=== PATIENT | female | born 1995 | race Caucasian/White ===

== ENCOUNTER 2019-04-17 16:44 | Emergency (ER) | payer OTHER ==
[2019-04-17 16:50] VITALS: BP 135/74; PULSE 100; TEMP 98.7; BMI 23.3
--- NOTE | 2019-04-17 17:24 | PDOC ---
History of Present Illness - General Chief Complaint: Pain Stated Complaint: SICK Time Seen by Provider: 04/17/19 16:52 History Source: Patient Exam Limitations: No Limitations Past History - Past Medical History Allergies/Adverse Reactions: Allergies Allergy/AdvReac Type Severity Reaction Status Date / Time No Known Allergies Allergy Verified 04/17/19 16:50 Home Medications: Ambulatory Orders NK [No Known Home Medication] 04/17/19 COPD: No - Suicide/Smoking/Psychosocial Hx Smoking History: Never smoked Information on smoking cessation initiated: No Hx Alcohol Use: No Drug/Substance Use Hx: No *Physical Exam - Vital Signs Last Vital Signs Temp Pulse Resp BP Pulse Ox 98.7 F 100 H 17 135/74 100 04/17/19 16:48 04/17/19 16:48 04/17/19 16:48 04/17/19 16:48 04/17/19 16:48 - Physical Exam General Appearance: No: Apparent Distress Female Pelvic Exam: positive: other (+L bartholin abscess with Tino ring in place, small amount of pus drainage from site, ring is in place, no streaking from site) Gastrointestinal/Abdominal: positive: Normal Bowel Sounds, Soft. negative: Tender, Distended, Guarding, Rebound Neurologic: positive: Alert, Normal Mood/Affect Medical Decision Making - Medical Decision Making 23 y/o F with no sig pmh presents s/p I&D of bartholin abscess on 04/14 at [facility] with pain along site of abscess. States pain is worse with walking; is concerned the "tubing" placed in site fell out or is out of place. Was discharged on Bactrim, which she is almost done with (today is last day). Denies fever, streaking. Tino ring still in place Patient reassured Advised Sitz baths Stable for dc 04/17/19 17:19 *DC/Admit/Observation/Transfer Diagnosis at time of Disposition: Bartholin's gland abscess - Discharge Dispostion Disposition: HOME Condition at time of disposition: Stable Decision to Admit order: No - Referrals Referrals: Katerina Schrader [Primary Care Provider] - Song Altman MD [Staff Physician] - 2 Days - Patient Instructions Printed Discharge Instructions: DI for Bartholin Gland Cyst Additional Instructions: Thank you for choosing [facility]. It was a pleasure taking care of you. You may take Motrin 600 mg every 6 hours by mouth as needed for mild to moderate pain. Take Motrin with food. Recommend warm compresses along site Can also do Sitz baths along site 3 times a day; each session at least 10-15 minutes long for pain You can give yourself a sitz bath in your bathtub or with a plastic kit that fits over your toilet. The ring will stay in place for 4-6 weeks You were referred to cafe worker for further evaluation Return to the Emergency Department if your symptoms worsen or persist, you have fever, streaking from wound or other concerning symptoms. - Post Discharge Activity
== END 2019-04-17 17:25 | disposition home or self-care (01) ==
LOC: JERFT 16:44
DX: N75.0 Cyst of Bartholin's gland (principal)
CPT/HCPCS: 99281-25

== ENCOUNTER 2019-04-19 17:29 | Emergency (ER) | payer OTHER ==
--- NOTE | 2019-04-19 17:37 | PDOC ---
Rapid Medical Evaluation Time Seen by Provider: 04/19/19 17:36 Medical Evaluation: Allergies Allergy/AdvReac Type Severity Reaction Status Date / Time No Known Allergies Allergy Verified 04/17/19 16:50 04/19/19 17:36 HPI: c/o labial cyst, s/p I&D now draining, thinks cyst may have come back PE: deferred ORDERS: nothing Discharge Disposition - Diagnosis Bartholin's gland abscess - Referrals - Patient Instructions - Post Discharge Activity
[2019-04-19 17:39] VITALS: BP 133/69; PULSE 88; TEMP 98.6; BMI 23.3
[2019-04-19] MEDS ORDERED: SULFAMETHOXAZOLE/TRIMETHOPRIM 800MG/160MG D.S. TABLET PO ONE (18:52)
--- NOTE | 2019-04-19 18:52 | PDOC ---
History of Present Illness - General Chief Complaint: Vaginal Sxs Stated Complaint: VAGINAL CYST Time Seen by Provider: 04/19/19 17:36 History Source: Patient Exam Limitations: No Limitations - History of Present Illness Travel History: No Initial Comments: 04/19/19 18:45 Patient is here for reevaluation of Bartholin's cyst. States had abscess drained with a ring April 14. States had been draining a moderate amount of cereal purulent drainage. Has completed her course of Bactrim for 7 days, and performing sitz baths 3 times a day. Was concerned a few days ago when she felt had a recurrence or worsening of the abscess. Was seen here on April 17, no further treatment was performed and known new noted complication. Patient came here insisting that the swelling was worsened and the pain recurrent. Timing/Duration: reports: getting worse Quality: reports: moderate, severe Abdominal Pain Onset Location: reports: other (Left labia) Past History - Travel Traveled outside of the country in the last 30 days: No Close contact w/someone who was outside of country & ill: No - Past Medical History Allergies/Adverse Reactions: Allergies Allergy/AdvReac Type Severity Reaction Status Date / Time No Known Allergies Allergy Verified 04/19/19 17:36 Home Medications: Ambulatory Orders Sulfamethoxazole/Trimethoprim [Bactrim *Ds*] 1 each PO BID #14 tablet 04/19/19 COPD: No - Reproductive History Is Patient Now?: No Dysfunctional Uterine Bleeding: No Ectopic : No Therapeutic (s) & number: No - Suicide/Smoking/Psychosocial Hx Smoking History: Never smoked Hx Alcohol Use: No Drug/Substance Use Hx: No Review of Systems - Review of Systems Able to Perform ROS?: Yes Is the patient limited Bhutanese proficient: Yes Constitutional: Yes: Symptoms Reported, See HPI, Malaise. No: Fever HEENTM: No: Symptoms Reported Respiratory: No: Symptoms reported : Yes: Symptoms Reported, Burning, Pain, Lesions Integumentary: Yes: Symptoms Reported All Other Systems: Reviewed and Negative *Physical Exam - Vital Signs Last Vital Signs Temp Pulse Resp BP Pulse Ox 98.6 F 88 16 133/69 99 04/19/19 17:37 04/19/19 17:37 04/19/19 17:37 04/19/19 17:37 04/19/19 17:37 - Physical Exam General Appearance: Yes: Nourished, Appropriately Dressed HEENT: positive: OSCAR, Normal ENT Inspection, TMs Normal, Pharynx Normal Neck: negative: Tender Female Pelvic Exam: positive: discharge, Bartholin mass (hard plastic catheter/ ring catheter intact to inferior aspect of Bartholin's abscess without fluctuance or noted erythema. Has fluctuant exquisitely tender mass superior to inferior mass that is approximately 3 cm x 2 cm.), other. negative: normal external exam Gastrointestinal/Abdominal: positive: Soft Musculoskeletal: positive: Normal Inspection Extremity: positive: Normal Inspection Integumentary: positive: Dry, Warm Neurologic: positive: clothing consultant II-XII NML intact, Fully Oriented, Alert, Normal Mood/ Affect, Normal Response Procedures - Incision and Drainage I&D Site: Left: Bartholin (large fluctuant exquisitely tender mass superior to site of previous Bartholin's incision and drainage. Ring catheter intact however has obvious recollection of purulent fluid and infection superior to previous site.) Betadine cleansed: Yes Anesthesia: 1% Lidocaine Blade Size: 11 Iodinated Packin/4 in Plain Packing: Yes Complications: none Dressing: Yes Progress Note - Progress Note Progress Note: Recurrent versus new abscess proximal to previous abscess/Bartholin's cyst. Onset approximately 50 mL of purulent drainage with clots. Quarter inch packing placed in new site. Patient tolerated procedure well. Given first dose of Bactrim DS, and 2 tablets of Percocet for pain relief *DC/Admit/Observation/Transfer Diagnosis at time of Disposition: Bartholin's gland abscess - Discharge Dispostion Disposition: HOME Condition at time of disposition: Stable Decision to Admit order: No - Referrals - Patient Instructions Printed Discharge Instructions: DI for Bartholin Gland Cyst Additional Instructions: Rest, keep area elevated. Avoid strenuous activity or exercise until wound is healed Use hot soaks to area to bring more blood to the surface and encourage drainage May change dressings as needed to keep clean - trying to avoid removal of packing for 2 days. If packing needs to be changed, return to emergency department or with your followup physician for wound care and evaluation and repacking as needed If packing needs to be removed, then in 2 days, while in the shower remove dressing and quickly pull the packing taken out. Allow water from shower to wash area thoroughly for 2-3 minutes, and pat dry upon exit of shower and replace dressing. Change his dressing daily until the wound is completely healed. May use Tylenol or Motrin for mild pain relief Use stronger medications as directed and prescribed Continue all medications as prescribed Followup with private physician in 2-3 days for wound check Return to emergency Department for worsening swelling, pain, redness, fevers as needed - Post Discharge Activity Forms/Work/School Notes: Back to Work
[2019-04-19] MEDS ORDERED: SULFAMETHOXAZOLE/TRIMETHOPRIM 800MG/160MG D.S. TABLET ONE (18:57)
== END 2019-04-19 19:00 | disposition home or self-care (01) ==
LOC: JER 17:29 → JERFT 17:29
PROC: 0U9L00Z Drainage of Vestibular Gland with Drainage Device, Open Approach (ICD-10-PCS; principal; 2019-04-19)
DX: N75.1 Abscess of Bartholin's gland (principal)
CPT/HCPCS: 56420; 99281-25

== ENCOUNTER 2021-02-18 09:49 | Emergency (ER) | payer OTHER ==
[2021-02-18 09:55] VITALS: TEMP 98.8; BMI 21.6
[2021-02-18 11:23] LABS: BASO % 0.9 % (0-2.0); EOS % 0.6 % (0-4.5); HEMATOCRIT 37.7 % (32.4-45.2); HEMOGLOBIN 12.6 GM/dL (10.7-15.3); LYMPH % 29.7 % (8-40); MCH 27.8 pg (25.7-33.7); MCHC 33.4 g/dl (32.0-36.0); MEAN CELL VOLUME 83.2 fl (80-96); MEAN PLT VOLUME 9.2 fl (7.5-11.1); MONO % 8.1 % (3.8-10.2); NEUT % 60.7 % (42.8-82.8); PLATELET COUNT 254 K/MM3 (134-434); RBC 4.53 M/mm3 (3.60-5.2); WHITE BLOOD COUNT 5.4 K/mm3 (4.0-10.0)
[2021-02-18 11:25] LABS: EPI CELLS 34 /uL (0-25.1); HYALINE CASTS 0 /uL (0-3.1); URINE APPEARANCE CLEAR; URINE BACTERIA 1318 /uL (0-1359); URINE BILIRUBIN NEGATIVE (NEGATIVE); URINE COLOR YELLOW; URINE GLUCOSE (UA) NEGATIVE (NEGATIVE); URINE KETONE TRACE (NEGATIVE); URINE LEUK ESTERASE TRACE (NEGATIVE); URINE NITRITE NEGATIVE (NEGATIVE); URINE PROTEIN NEGATIVE (NEGATIVE); URINE RBC 2 /uL (0-23.9); URINE UROBILINOGEN 0.2 mg/dL (0.2-1.0); URINE WBC 15 /uL (0-25.8)
[2021-02-18 11:40] LABS: CHLORIDE 106 mmol/L (98-107); SODIUM 138 mmol/L (136-145)
[2021-02-18 11:42] LABS: CALCIUM 9.4 mg/dL (8.5-10.1)
[2021-02-18 11:43] LABS: ALBUMIN 4.7 g/dl (3.4-5.0); ANION GAP 6 MMOL/L (8-16); BLOOD UREA NITROGEN 6.5 mg/dL (7-18); CO2 25 mmol/L (21-32); GLUCOSE,RANDOM 74 mg/dL (74-106)
[2021-02-18 11:46] LABS: CREATININE 0.6 mg/dL (0.55-1.3); SGOT/AST 11 U/L (15-37); SGPT/ALT 18 U/L (13-61)
[2021-02-18 11:47] LABS: BILIRUBIN,TOTAL 0.9 mg/dL (0.2-1)
[2021-02-18 11:48] LABS: TOT PROT 8.5 g/dl (6.4-8.2)
[2021-02-18 11:49] LABS: ALK PHOS 58 U/L (45-117)
[2021-02-18 13:22] VITALS: BP 118/70; PULSE 78
== END 2021-02-18 13:21 | disposition home or self-care (01) ==
LOC: JER 09:49
DX: N30.00 Acute cystitis without hematuria (principal); Z3A.01 Less than 8 weeks gestation of pregnancy
CPT/HCPCS: 36415; 76817-TC; 80053; 81003; 84702; 85025; 86850; 86900; 86901; 87086; 99284-25